=== PATIENT | male | born 1970 | race Two or more races ===

== ENCOUNTER 2017-10-30 08:21 | Inpatient (IN) | payer MEDICARE, MEDICAID ==
[2017-10-30] VITALS (23 sets, daily range): BP systolic 90–128; BP diastolic 41–81
[~2017-10-30] VITALS: Ht 175.3 cm; Wt 117.0 kg
[~2017-10-30 08:21] MED LIST: CITA-77; DIVA500T59; LACO200T PO; LAMICTAL; LORA-205; MELO1TAB56; OXCA300T26; PRIM250T29 PO; TOPAMAX; TOPI100T29 PO; [UNRECOGNIZED DRUG - CODE]; [UNRECOGNIZED DRUG - CODE]
[2017-10-30 09:41] LABS: Basophils # (auto) 0 uL; Basophils % (auto) 0.1 % (0.0-2.0); Eosinophils # (auto) 0 uL; Hematocrit 43.9 % (41.0-53.0); Hemoglobin 14.2 g/dL (13.5-17.5); Lymphocytes % (auto) 4.1 % (10.0-50.0); Mean Corpuscular Hemoglobin 29.2 pg (28.0-32.0); Mean Corpuscular Hgb Conc. 32.4 g/dL (32.0-36.0); Monocytes # (auto) 0.9 uL; Monocytes % (auto) 3.8 % (0.0-12.0); Neutrophils # (auto) 21.9 uL; Nucleated Red Blood Cells % 0.1 %; Platelet Count (auto) 311 10^3/uL (140-450); Red Blood Cells 4.87 10^6/uL (4.5-5.90); Red Cell Distribution Width 14.4 % (11.8-14.3); White Blood Cell 23.8 10^3/uL (4.4-10.8)
[2017-10-30 09:54] LABS: Albumin 3.3 g/dL (3.4-5.0); BUN/Creatinine Ratio 17.4; Potassium 3.4 mmol/L (3.5-5.1)
[2017-10-30 09:55] LABS: Lactic Acid w/Reflex 2.1 mmol/L (0.4-2.0)
[2017-10-30 09:56] LABS: Urine Bacteria FEW /hpf (None Seen); Urine Blood Negative /uL (Negative); Urine Hyaline Cast FEW /lpf (0 - 2); Urine Mucus FEW (None Seen); Urine Specific Gravity 1.024 (1.001-1.035); Urine WBC 9 /hpf (0 - 3)
[2017-10-30 09:57] LABS: Bilirubin, Total 0.6 mg/dL (0.2-1.0); Total Protein 8.7 g/dL (6.4-8.2)
[2017-10-30] MEDS ORDERED: SODIUM CHLORIDE 0.9% 1,000 ML IVB ONE (10:25)
[2017-10-30] MEDS ORDERED: cefTRIAXone 1GM/10ml IVPUSH 10 ML IV ONE (10:30)
[2017-10-30 11:18] LABS: Magnesium 2.4 mg/dL (1.6-2.6)
[2017-10-30] MEDS ORDERED: ONDANSETRON HCL 4 MG/2 ML VIAL IV ONE ×2 (12:15→14:45)
[2017-10-30] MEDS ORDERED: metroNIDAZOLE 500MG/100ML 100 ML IV ONE (13:15)
[2017-10-30] MEDS ORDERED: SODIUM CHLORIDE 0.9% 1,000 ML IV SCH (13:48)
[2017-10-30] MEDS ORDERED: VANCOMYCIN PER PHARMACY 0 MG IV SCH (14:00)
[2017-10-30] MEDS ORDERED: ONDANSETRON HCL 4 MG/2 ML VIAL IV PRN (14:00)
[2017-10-30] MEDS ORDERED: LEVETIRACETAM INJ 500 MG in D5W 5% 100 ML IV ONE (14:00)
[2017-10-30] MEDS ORDERED: POTASSIUM CHL 20MEQ/100ML 100 ML IV ONE (14:00)
[2017-10-30] MEDS ORDERED: DEXTROSE (50%) 50ML SYRG IV PRN (14:00)
[2017-10-30] MEDS ORDERED: LABETALOL HCL 5 MG/ML 4ML SYRINGE IV PRN (14:45)
[2017-10-30] MEDS ORDERED: NALOXONE HCL 0.4 MG/ML VIAL IV PRN (14:45)
[2017-10-30] MEDS ORDERED: hydrALAZINE HCL 20 MG/ML VL IV PRN (14:45)
[2017-10-30] MEDS ORDERED: METOCLOPRAMIDE HCL 5MG/ml INJ 2ml VIAL IV ONE (14:45)
[2017-10-30] MEDS ORDERED: ePHEDrine SULFATE 50 MG/ML AMP IV PRN (14:45)
[2017-10-30] MEDS ORDERED: HYDROmorphone HCL 2 MG/ML VL IV PRN (14:45)
[2017-10-30] MEDS ORDERED: VANCOMYCIN 1,500 MG in D5W 5% 250 ML IV ONE (15:00)
[2017-10-30] MEDS ORDERED: fentaNYL CITRATE 100 MCG/2 ML VL IV ONE (15:00)
[2017-10-30] MEDS ORDERED: ROCURONIUM 10MG/ML 10ML VIAL IV ONE (15:01)
[2017-10-30] MEDS ORDERED: fentaNYL CITRATE 5 ML ONE (15:01)
[2017-10-30] MEDS ORDERED: METOCLOPRAMIDE HCL 5MG/ml INJ 2ml VIAL ONE (15:02)
[2017-10-30] MEDS ORDERED: DEXAMETHASONE SOD PHOS 10MG/1ML VIAL INJ ONE (15:02)
[2017-10-30] MEDS ORDERED: SODIUM CHLORIDE LOCK 20 ML ONE (15:02)
[2017-10-30] MEDS ORDERED: GLYCOPYRROLATE 0.2 MG/ML 1ML VIAL ONE (15:02)
[2017-10-30] MEDS ORDERED: PROPOFOL 10 MG/ML 20 ML IV ONE (15:02)
[2017-10-30] MEDS ORDERED: LIDOCAINE HCL 2 %PF INJ 10ML AMP IJ ONE (15:02)
[2017-10-30] MEDS ORDERED: diphenhdrAMINE HCL 50 MG/1 ML VL ONE (15:02)
[2017-10-30 15:12] LABS: INR 1.1 (0.9-1.15); Prothrombin Time 11.7 sec (9.27-12.13)
[2017-10-30] MEDS ORDERED: BUPIVACAINE 0.25% INJ 50ML VIAL ONE (15:28)
[2017-10-30] MEDS ORDERED: ePHEDrine SULFATE 50 MG/ML AMP ONE (16:45)
[2017-10-30] MEDS ORDERED: ceFAZolin 1GM VL ONE (17:48)
[2017-10-30] MEDS: InsuLIN REG 1unit/0.01ml Soln (100units/ml) SC SCH (18:00)
[2017-10-30] MEDS: ACCU-CHEK COMFORT CURVE STRIP VI SCH (18:00)
[2017-10-30] MEDS ORDERED: fentaNYL CITRATE 100 MCG/2 ML VL ONE (18:05)
[2017-10-30] MEDS ORDERED: PROPOFOL 100 ML IV ONE (18:40)
[2017-10-30] MEDS: D5W/SOD CHL 0.45% 1,000 ML IV SCH (19:00)
[2017-10-30] MEDS ORDERED: fentaNYL Drip 2500mCg/250mlNS 250 ML IV SCH (19:23)
[2017-10-30] MEDS: metroNIDAZOLE 500MG/100ML 100 ML IV SCH (20:00)
[2017-10-30] MEDS: PROPOFOL 100 ML IV SCH ×2 (20:42→23:02)
[2017-10-30] MEDS ORDERED: FLUO40CA PO (21:25)
[2017-10-30] MEDS ORDERED: QUET100T46 PO (21:25)
[2017-10-30] MEDS ORDERED: LEVETIRACETAM 500 MG/5ML INJ IV ONE (23:15)
[2017-10-31] VITALS (102 sets, daily range): BP systolic 78–141; BP diastolic 43–95
[2017-10-31] MEDS: LEVETIRACETAM INJ 500 MG in D5W 5% 100 ML IV SCH ×2 (01:47→14:00)
[2017-10-31] MEDS: metroNIDAZOLE 500MG/100ML 100 ML IV SCH ×4 (02:00→20:08)
[2017-10-31] MEDS: PROPOFOL 100 ML IV SCH ×2 (02:59→04:35)
[2017-10-31] MEDS: D5W/SOD CHL 0.45% 1,000 ML IV SCH ×3 (03:00→18:06)
[2017-10-31 04:21] LABS: Basophils # (auto) 0 uL; Basophils % (auto) 0.1 % (0.0-2.0); Eosinophils # (auto) 0 uL; Hematocrit 38.9 % (41.0-53.0); Hemoglobin 12.7 g/dL (13.5-17.5); Lymphocytes # (auto) 0.4 uL; Mean Corpuscular Hemoglobin 29.8 pg (28.0-32.0); Mean Corpuscular Hgb Conc. 32.7 g/dL (32.0-36.0); Mean Corpuscular Volume 91.1 fL (80.0-100.0); Monocytes # (auto) 0.8 uL; Monocytes % (auto) 5.9 % (0.0-12.0); Neutrophils # (auto) 12.4 uL; Platelet Count (auto) 285 10^3/uL (140-450); Red Blood Cells 4.28 10^6/uL (4.5-5.90); Red Cell Distribution Width 14.1 % (11.8-14.3); White Blood Cell 13.6 10^3/uL (4.4-10.8)
[2017-10-31 04:43] LABS: Albumin 2.4 g/dL (3.4-5.0); BUN/Creatinine Ratio 22.4; Bilirubin, Total 0.5 mg/dL (0.2-1.0); Potassium 3.2 mmol/L (3.5-5.1)
[2017-10-31] MEDS: HYDROmorphone HCL 2 MG/ML VL IV PRN (05:30)
[2017-10-31] MEDS: POTASSIUM CHL 20MEQ/100ML 100 ML IV SCH ×2 (05:30→07:30)
[2017-10-31] MEDS: ACCU-CHEK COMFORT CURVE STRIP VI SCH ×5 (06:04→23:42)
[2017-10-31] MEDS: InsuLIN REG 1unit/0.01ml Soln (100units/ml) SC SCH ×5 (06:04→23:42)
[2017-10-31] MEDS ORDERED: PROPOFOL 100 ML IV ONE (08:49)
[2017-10-31] MEDS: cefTRIAXone 1GM/10ml IVPUSH 10 ML IV SCH (08:58)
[2017-10-31] MEDS: VANCOMYCIN 1,500 MG in D5W 5% 250 ML IV SCH (09:28)
[2017-10-31] MEDS: ENOXAPARIN SOD 40 MG/0.4 ML SYRINGE SC SCH (10:00)
[2017-10-31] MEDS ORDERED: EPINEPHrine HCL 0.5 ML NEB ONE (11:56)
[2017-10-31] MEDS ORDERED: DEXAMETHASONE SOD PHOS 10MG/1ML VIAL INJ ONE (12:04)
[2017-10-31] MEDS ORDERED: FUROSEMIDE 40 MG/4 ML VIAL ONE (12:04)
[2017-10-31] MEDS ORDERED: DEXAMETHASONE SOD PHOS 10MG/1ML VIAL INJ IV ONE (12:15)
[2017-10-31] MEDS ORDERED: FUROSEMIDE 40 MG/4 ML VIAL IV ONE (12:15)
[2017-10-31] MEDS ORDERED: EPINEPHrine HCL 0.5 ML NEB NEB ONE (12:15)
[2017-10-31] MEDS: MORPHINE SULF INJ 2 MG/ML SYRINGE 1ML IV PRN (12:29)
[2017-10-31] MEDS: LORazepam 2MG/ML-1ML VIAL IV PRN (12:58)
[2017-10-31] MEDS: fentaNYL Drip 2500mCg/250mlNS 250 ML IV SCH (13:13)
[2017-10-31] MEDS ORDERED: MIDAZOLAM DRIP 50 mg/50mL 50 ML IV SCH (13:13)
[2017-10-31] MEDS ORDERED: MIDAZOLAM HCL 5 MG/ML-1ML VIAL ONE (13:16)
[2017-10-31] MEDS: MIDAZOLAM DRIP 50 mg/50mL 50 ML IV SCH ×2 (14:15→22:17)
[2017-10-31] MEDS: DEXMEDETOMIDINE HCL 400 MCG in D5W 5% 96 ML IV SCH (15:57)
[2017-10-31] MEDS: LACOSAMIDE 50 MG TAB PO SCH ×2 (16:30→21:38)
[2017-10-31] MEDS ORDERED: metroNIDAZOLE 500MG/100ML 100 ML IV ONE (16:34)
[2017-10-31] MEDS: methylPREDNISolone SOD SUCC 125 MG/2 ML VL IV SCH (21:21)
[2017-10-31] MEDS: TOPIRAMATE 100 MG TAB PO SCH (21:22)
[2017-10-31] MEDS: FLUoxetine HCL 20 MG CAP PO SCH (21:22)
[2017-10-31] MEDS: QUEtiapine FUMARATE 25 MG TAB PO SCH (21:22)
[2017-10-31] MEDS: PRIMIDONE 50 MG TAB PO SCH (21:37)
[2017-11-01] VITALS (104 sets, daily range): BP systolic 95–121; BP diastolic 46–70
[2017-11-01] MEDS: MIDAZOLAM DRIP 50 mg/50mL 50 ML IV SCH ×3 (01:15→17:11)
[2017-11-01] MEDS: metroNIDAZOLE 500MG/100ML 100 ML IV SCH ×4 (01:37→20:16)
[2017-11-01] MEDS: LEVETIRACETAM INJ 500 MG in D5W 5% 100 ML IV SCH ×2 (01:37→14:00)
[2017-11-01] MEDS: DEXMEDETOMIDINE HCL 400 MCG in D5W 5% 96 ML IV SCH (03:05)
[2017-11-01] MEDS: VANCOMYCIN 1,500 MG in D5W 5% 250 ML IV SCH ×2 (03:22→21:26)
[2017-11-01 03:53] LABS: Basophils # (auto) 0 uL; Eosinophils # (auto) 0 uL; Hematocrit 35.4 % (41.0-53.0); Hemoglobin 11.5 g/dL (13.5-17.5); Lymphocytes # (auto) 0.3 uL; Lymphocytes % (auto) 2.4 % (10.0-50.0); Mean Corpuscular Hemoglobin 29.2 pg (28.0-32.0); Mean Corpuscular Hgb Conc. 32.5 g/dL (32.0-36.0); Mean Corpuscular Volume 89.8 fL (80.0-100.0); Monocytes # (auto) 0.4 uL; Monocytes % (auto) 3.2 % (0.0-12.0); Neutrophils # (auto) 11.9 uL; Neutrophils % (auto) 94.4 % (37.0-80.0); Nucleated Red Blood Cells % 0.3 %; Platelet Count (auto) 282 10^3/uL (140-450); Red Blood Cells 3.94 10^6/uL (4.5-5.90); Red Cell Distribution Width 14.3 % (11.8-14.3); White Blood Cell 12.6 10^3/uL (4.4-10.8)
[2017-11-01 04:22] LABS: Albumin 2.3 g/dL (3.4-5.0); Bilirubin, Total 0.5 mg/dL (0.2-1.0); Calcium 7.7 mg/dL (8.5-10.1); Potassium 3.2 mmol/L (3.5-5.1); Total Protein 7.1 g/dL (6.4-8.2)
[2017-11-01] MEDS ORDERED: POTASSIUM CHL 20 Meq TABLET PO ONE (05:30)
[2017-11-01] MEDS: methylPREDNISolone SOD SUCC 125 MG/2 ML VL IV SCH ×3 (05:53→21:53)
[2017-11-01] MEDS: PRIMIDONE 50 MG TAB PO SCH ×3 (05:54→21:54)
[2017-11-01] MEDS: InsuLIN REG 1unit/0.01ml Soln (100units/ml) SC SCH ×3 (05:54→18:00)
[2017-11-01] MEDS: ACCU-CHEK COMFORT CURVE STRIP VI SCH ×3 (05:54→18:00)
[2017-11-01] MEDS ORDERED: POTASSIUM EFFERVESENT TAB 25 MEQ PO ONE (06:00)
[2017-11-01] MEDS: D5W/SOD CHL 0.45% 1,000 ML IV SCH ×3 (06:14→17:11)
[2017-11-01] MEDS: cefTRIAXone 1GM/10ml IVPUSH 10 ML IV SCH (09:00)
[2017-11-01] MEDS: LACOSAMIDE 50 MG TAB PO SCH ×2 (09:32→21:53)
[2017-11-01] MEDS: FLUoxetine HCL 20 MG CAP PO SCH ×2 (09:32→21:53)
[2017-11-01] MEDS: PANTOPRAZOLE 40 MG/10 ML VIAL IV SCH (09:32)
[2017-11-01] MEDS: ENOXAPARIN SOD 40 MG/0.4 ML SYRINGE SC SCH (09:32)
[2017-11-01] MEDS: TOPIRAMATE 100 MG TAB PO SCH ×2 (09:55→21:54)
[2017-11-01] MEDS: fentaNYL Drip 2500mCg/250mlNS 250 ML IV SCH ×2 (13:13→21:26)
[2017-11-01] MEDS ORDERED: LIDOCAINE 1% (LOCAL ANESTH.) PF 5ml SDV ID ONE (16:15)
[2017-11-01] MEDS ORDERED: SODIUM CHLORIDE 0.9% 500 ML IV ONE (19:00)
[2017-11-01] MEDS: PROPOFOL 100 ML IV SCH (19:23)
[2017-11-01] MEDS: POTASSIUM CHL 20MEQ/100ML 100 ML IV ONE ×2 (20:16→21:53)
[2017-11-01] MEDS: QUEtiapine FUMARATE 25 MG TAB PO SCH (21:53)
[2017-11-01] MEDS: SODIUM CHLOR 0.9% PF (SALINE LOCK) 10ML VIAL/SYR IV SCH (21:54)
[2017-11-02] VITALS (60 sets, daily range): BP systolic 94–139; BP diastolic 50–105
[2017-11-02] MEDS: ACCU-CHEK COMFORT CURVE STRIP VI SCH ×4 (00:15→17:38)
[2017-11-02] MEDS: InsuLIN REG 1unit/0.01ml Soln (100units/ml) SC SCH ×4 (00:15→17:37)
[2017-11-02] MEDS: LEVETIRACETAM INJ 500 MG in D5W 5% 100 ML IV SCH ×2 (01:46→14:00)
[2017-11-02] MEDS: metroNIDAZOLE 500MG/100ML 100 ML IV SCH ×4 (02:09→20:36)
[2017-11-02] MEDS: MIDAZOLAM DRIP 50 mg/50mL 50 ML IV SCH (02:09)
[2017-11-02] MEDS: DEXMEDETOMIDINE HCL 400 MCG in D5W 5% 96 ML IV SCH (03:30)
[2017-11-02 03:46] LABS: Basophils # (auto) 0 uL; Basophils % (auto) 0.1 % (0.0-2.0); Eosinophils # (auto) 0 uL; Hematocrit 33.8 % (41.0-53.0); Hemoglobin 10.8 g/dL (13.5-17.5); Lymphocytes # (auto) 0.5 uL; Mean Corpuscular Hemoglobin 29.1 pg (28.0-32.0); Mean Corpuscular Hgb Conc. 31.8 g/dL (32.0-36.0); Mean Corpuscular Volume 91.3 fL (80.0-100.0); Monocytes # (auto) 0.8 uL; Monocytes % (auto) 5.9 % (0.0-12.0); Neutrophils # (auto) 12.2 uL; Nucleated Red Blood Cells % 0.2 %; Platelet Count (auto) 262 10^3/uL (140-450); Red Blood Cells 3.71 10^6/uL (4.5-5.90); Red Cell Distribution Width 14.1 % (11.8-14.3); White Blood Cell 13.5 10^3/uL (4.4-10.8)
[2017-11-02 04:08] LABS: Potassium 3.6 mmol/L (3.5-5.1)
[2017-11-02 04:16] LABS: Albumin 2.1 g/dL (3.4-5.0); BUN/Creatinine Ratio 32.4; Bilirubin, Total 0.4 mg/dL (0.2-1.0); Calcium 7.7 mg/dL (8.5-10.1); Total Protein 6.9 g/dL (6.4-8.2)
[2017-11-02] MEDS: methylPREDNISolone SOD SUCC 125 MG/2 ML VL IV SCH ×3 (05:49→23:04)
[2017-11-02] MEDS: PRIMIDONE 50 MG TAB PO SCH ×3 (05:49→23:05)
[2017-11-02] MEDS: D5W/SOD CHL 0.45% 1,000 ML IV SCH ×3 (05:50→20:36)
[2017-11-02] MEDS: cefTRIAXone 1GM/10ml IVPUSH 10 ML IV SCH (09:00)
[2017-11-02] MEDS ORDERED: VANCOMYCIN 1,500 MG in D5W 5% 250 ML IV SCH (09:00)
[2017-11-02] MEDS: LACOSAMIDE 50 MG TAB PO SCH ×2 (10:00→23:06)
[2017-11-02] MEDS: FLUoxetine HCL 20 MG CAP PO SCH ×2 (10:24→23:05)
[2017-11-02] MEDS: SODIUM CHLOR 0.9% PF (SALINE LOCK) 10ML VIAL/SYR IV SCH ×2 (10:24→23:04)
[2017-11-02] MEDS: PANTOPRAZOLE 40 MG/10 ML VIAL IV SCH (10:24)
[2017-11-02] MEDS: TOPIRAMATE 100 MG TAB PO SCH ×2 (10:24→23:06)
[2017-11-02] MEDS: ENOXAPARIN SOD 40 MG/0.4 ML SYRINGE SC SCH (10:25)
[2017-11-02] MEDS: QUEtiapine FUMARATE 25 MG TAB PO SCH (23:05)
[2017-11-03] MEDS: ACCU-CHEK COMFORT CURVE STRIP VI SCH ×4 (01:50→18:33)
[2017-11-03] MEDS: metroNIDAZOLE 500MG/100ML 100 ML IV SCH ×4 (02:29→20:23)
[2017-11-03] MEDS: LEVETIRACETAM INJ 500 MG in D5W 5% 100 ML IV SCH ×2 (02:29→14:02)
[2017-11-03] MEDS: D5W/SOD CHL 0.45% 1,000 ML IV SCH ×3 (04:38→19:25)
[2017-11-03] MEDS: MORPHINE SULF INJ 2 MG/ML SYRINGE 1ML IV PRN ×2 (04:39→20:22)
[2017-11-03 05:00] VITALS: BP 128/76
[2017-11-03] MEDS: InsuLIN REG 1unit/0.01ml Soln (100units/ml) SC SCH ×4 (06:00→18:00)
[2017-11-03] MEDS: PRIMIDONE 50 MG TAB PO SCH ×4 (06:43→22:00)
[2017-11-03] MEDS: methylPREDNISolone SOD SUCC 125 MG/2 ML VL IV SCH ×3 (06:43→21:57)
[2017-11-03 08:00] VITALS: BP 135/68
[2017-11-03 08:18] LABS: Basophils # (auto) 0 uL; Basophils % (auto) 0.1 % (0.0-2.0); Eosinophils # (auto) 0 uL; Eosinophils % (auto) 0.1 % (0.0-7.0); Hematocrit 37.3 % (41.0-53.0); Lymphocytes # (auto) 0.9 uL; Lymphocytes % (auto) 6.2 % (10.0-50.0); Mean Corpuscular Hemoglobin 29.2 pg (28.0-32.0); Mean Corpuscular Hgb Conc. 32.3 g/dL (32.0-36.0); Mean Corpuscular Volume 90.4 fL (80.0-100.0); Monocytes # (auto) 1.4 uL; Monocytes % (auto) 9.1 % (0.0-12.0); Neutrophils # (auto) 12.7 uL; Neutrophils % (auto) 84.5 % (37.0-80.0); Nucleated Red Blood Cells % 0.1 %; Platelet Count (auto) 331 10^3/uL (140-450); Red Blood Cells 4.13 10^6/uL (4.5-5.90); Red Cell Distribution Width 13.8 % (11.8-14.3); White Blood Cell 15.1 10^3/uL (4.4-10.8)
[2017-11-03 08:40] LABS: Albumin 2.3 g/dL (3.4-5.0); BUN/Creatinine Ratio 29.9; Bilirubin, Total 0.4 mg/dL (0.2-1.0); Calcium 8.2 mg/dL (8.5-10.1); Potassium 3.5 mmol/L (3.5-5.1); Total Protein 7.1 g/dL (6.4-8.2)
[2017-11-03] MEDS: PANTOPRAZOLE 40 MG/10 ML VIAL IV SCH (08:49)
[2017-11-03] MEDS: cefTRIAXone 1GM/10ml IVPUSH 10 ML IV SCH (08:49)
[2017-11-03] MEDS: ENOXAPARIN SOD 40 MG/0.4 ML SYRINGE SC SCH (08:58)
[2017-11-03] MEDS: SODIUM CHLOR 0.9% PF (SALINE LOCK) 10ML VIAL/SYR IV SCH ×2 (08:59→21:57)
[2017-11-03 09:00] VITALS: BP 135/68
[2017-11-03] MEDS: LACOSAMIDE 50 MG TAB PO SCH ×3 (10:00→22:00)
[2017-11-03] MEDS: TOPIRAMATE 100 MG TAB PO SCH ×3 (10:00→22:00)
[2017-11-03] MEDS: FLUoxetine HCL 20 MG CAP PO SCH ×3 (10:00→22:00)
[2017-11-03 22:00] VITALS: BP_SYST 133; BP_SYST 135; BP_DIAS 74; BP_DIAS 79
[2017-11-03] MEDS: QUEtiapine FUMARATE 25 MG TAB PO SCH (22:00)
[2017-11-04] MEDS: ACCU-CHEK COMFORT CURVE STRIP VI SCH ×4 (00:02→18:00)
[2017-11-04] MEDS: metroNIDAZOLE 500MG/100ML 100 ML IV SCH ×4 (01:50→21:07)
[2017-11-04] MEDS: MORPHINE SULF INJ 2 MG/ML SYRINGE 1ML IV PRN ×2 (01:51→23:00)
[2017-11-04] MEDS: LEVETIRACETAM INJ 500 MG in D5W 5% 100 ML IV SCH ×2 (02:00→14:00)
[2017-11-04] MEDS ORDERED: LEVETIRACETAM 500 MG/5ML INJ IV ONE (02:46)
[2017-11-04 04:40] VITALS: BP 137/79
[2017-11-04 05:59] LABS: Hematocrit 40.3 % (41.0-53.0); Hemoglobin 13.1 g/dL (13.5-17.5); Mean Corpuscular Hemoglobin 29.5 pg (28.0-32.0); Mean Corpuscular Hgb Conc. 32.4 g/dL (32.0-36.0); Mean Corpuscular Volume 91.1 fL (80.0-100.0); Platelet Count (auto) 344 10^3/uL (140-450); Red Blood Cells 4.42 10^6/uL (4.5-5.90); Red Cell Distribution Width 14.3 % (11.8-14.3); White Blood Cell 14.8 10^3/uL (4.4-10.8)
[2017-11-04] MEDS: InsuLIN REG 1unit/0.01ml Soln (100units/ml) SC SCH ×4 (06:00→18:00)
[2017-11-04] MEDS: PRIMIDONE 50 MG TAB PO SCH ×3 (06:00→22:00)
[2017-11-04 06:12] LABS: Basophils % (manual) 0 (0.0-2.0); Blast Cells 0; Metamyelocytes % 0; Myelocytes % 0; Promyelocytes % 0; Reactive Lymphocytes 0
[2017-11-04] MEDS: methylPREDNISolone SOD SUCC 125 MG/2 ML VL IV SCH ×3 (06:20→22:46)
[2017-11-04] MEDS: D5W/SOD CHL 0.45% 1,000 ML IV SCH ×3 (06:20→19:00)
[2017-11-04 06:25] LABS: Albumin 2.2 g/dL (3.4-5.0); BUN/Creatinine Ratio 24.1; Bilirubin, Total 0.4 mg/dL (0.2-1.0); Calcium 8.2 mg/dL (8.5-10.1); Potassium 3.1 mmol/L (3.5-5.1); Total Protein 6.5 g/dL (6.4-8.2)
[2017-11-04 06:38] LABS: Band Neutrophils % (manual) 3; Eosinophils % (manual) 1 (0-7); Lymphocytes % (manual) 12 (10.0-50.0); Monocytes % (manual) 13 (0-12)
[2017-11-04 08:44] VITALS: BP 129/76
[2017-11-04] MEDS: cefTRIAXone 1GM/10ml IVPUSH 10 ML IV SCH (09:31)
[2017-11-04] MEDS: PANTOPRAZOLE 40 MG/10 ML VIAL IV SCH (09:31)
[2017-11-04] MEDS: ENOXAPARIN SOD 40 MG/0.4 ML SYRINGE SC SCH (09:32)
[2017-11-04] MEDS: SODIUM CHLOR 0.9% PF (SALINE LOCK) 10ML VIAL/SYR IV SCH ×2 (09:46→22:46)
[2017-11-04] MEDS: TOPIRAMATE 100 MG TAB PO SCH ×2 (10:00→22:00)
[2017-11-04] MEDS: LACOSAMIDE 50 MG TAB PO SCH ×2 (10:00→22:00)
[2017-11-04] MEDS: FLUoxetine HCL 20 MG CAP PO SCH ×2 (10:00→22:00)
[2017-11-04 13:00] VITALS: BP 135/89
[2017-11-04 15:17] LABS: Magnesium 2.3 mg/dL (1.6-2.6); Phosphorus 2.5 mg/dL (2.5-4.90)
[2017-11-04] MEDS ORDERED: TPN PER PHARMACY 0 ML IV SCH (15:30)
[2017-11-04] MEDS ORDERED: POTASSIUM CHL 20MEQ/100ML 100 ML IV ONE (15:55)
[2017-11-04] MEDS: POTASSIUM CHL 20MEQ/100ML 100 ML IV SCH (16:00)
[2017-11-04] MEDS ORDERED: POTASSIUM PHOSPHATE 44 MEQ in D5W 5% 250 ML IV ONE (16:15)
[2017-11-04] MEDS ORDERED: DEXTROSE (50%) 50ML SYRG IV SCH (16:30)
[2017-11-04 17:00] VITALS: BP 138/97
[2017-11-04] MEDS ORDERED: IOHEXOL 350 MG/ML 100ML IJ ONE (17:53)
[2017-11-04] MEDS ORDERED: FUROSEMIDE 40 MG/4 ML VIAL IV ONE (18:45)
[2017-11-04] MEDS: AMINO ACID INFUSION IN D10W 1,000 ML IV NR (20:00)
[2017-11-04] MEDS ORDERED: D5W/SOD CHL 0.45% 1,000 ML IV SCH (20:00)
[2017-11-04] MEDS ORDERED: MAGNESIUM SULFATE 1GM/100ML 100 ML IV ONE (21:00)
[2017-11-04 21:15] VITALS: BP 136/90
[2017-11-04 22:00] VITALS: BP 136/90
[2017-11-04] MEDS: QUEtiapine FUMARATE 25 MG TAB PO SCH (22:00)
[2017-11-05] VITALS (10 sets, daily range): BP systolic 111–139; BP diastolic 55–82
[2017-11-05] MEDS: ACCU-CHEK COMFORT CURVE STRIP VI SCH ×4 (00:33→17:25)
[2017-11-05] MEDS: LEVETIRACETAM INJ 500 MG in D5W 5% 100 ML IV SCH (01:39)
[2017-11-05] MEDS: metroNIDAZOLE 500MG/100ML 100 ML IV SCH ×4 (03:09→20:47)
[2017-11-05] MEDS: POTASSIUM CHL 20MEQ/100ML 100 ML IV SCH (03:10)
[2017-11-05] MEDS: ALBUTEROL SULF 2.5 MG/0.5ML(0.5%) NEB SOLN NEB PRN ×2 (03:35→07:04)
[2017-11-05] MEDS: MORPHINE SULF INJ 2 MG/ML SYRINGE 1ML IV PRN ×3 (04:01→21:15)
[2017-11-05] MEDS: PRIMIDONE 50 MG TAB PO SCH ×3 (04:07→22:00)
[2017-11-05] MEDS: LORazepam 2MG/ML-1ML VIAL IV PRN ×2 (05:45→06:49)
[2017-11-05] MEDS: InsuLIN REG 1unit/0.01ml Soln (100units/ml) SC SCH ×4 (06:00→17:33)
[2017-11-05] MEDS: methylPREDNISolone SOD SUCC 125 MG/2 ML VL IV SCH ×3 (06:44→22:48)
[2017-11-05 06:46] LABS: Hematocrit 40.5 % (41.0-53.0); Hemoglobin 13.1 g/dL (13.5-17.5); Mean Corpuscular Hgb Conc. 32.3 g/dL (32.0-36.0); Platelet Count (auto) 404 10^3/uL (140-450); Red Cell Distribution Width 13.8 % (11.8-14.3); White Blood Cell 16.9 10^3/uL (4.4-10.8)
[2017-11-05 07:06] LABS: Band Neutrophils % (manual) 0; Basophils % (manual) 0 (0.0-2.0); Blast Cells 0; Eosinophils % (manual) 0 (0-7); Myelocytes % 0; Promyelocytes % 0; Reactive Lymphocytes 0
[2017-11-05 07:27] LABS: Albumin 2.6 g/dL (3.4-5.0); BUN/Creatinine Ratio 23.6; Bilirubin, Total 0.4 mg/dL (0.2-1.0); Calcium 8.7 mg/dL (8.5-10.1); Magnesium 2.8 mg/dL (1.6-2.6); Phosphorus 4.4 mg/dL (2.5-4.90); Potassium 3.9 mmol/L (3.5-5.1); Pre Albumin 24.2 mg/dL (20.0-40.0); Total Protein 7.2 g/dL (6.4-8.2)
[2017-11-05 08:05] LABS: Lymphocytes % (manual) 10 (10.0-50.0); Metamyelocytes % 1; Monocytes % (manual) 6 (0-12)
[2017-11-05] MEDS: IPRATROPIUM BROM 0.5 MG/2.5ML INH SOL NEB SCH ×4 (09:35→22:39)
[2017-11-05] MEDS: ALBUTEROL SULF 2.5 MG/0.5ML(0.5%) NEB SOLN NEB SCH ×4 (09:35→22:39)
[2017-11-05] MEDS ORDERED: ALBUTEROL SULF 2.5 MG/0.5ML(0.5%) NEB SOLN ONE (09:46)
[2017-11-05] MEDS ORDERED: IPRATROPIUM BROM 0.5 MG/2.5ML INH SOL ONE (09:46)
[2017-11-05] MEDS: PIPERACILLIN-TAZOB 3.375GM 100 ML IV SCH ×3 (10:00→17:28)
[2017-11-05] MEDS: TOPIRAMATE 100 MG TAB PO SCH (10:00)
[2017-11-05] MEDS ORDERED: LEVETIRACETAM INJ 1,000 MG in D5W 5% 100 ML IV SCH (10:00)
[2017-11-05] MEDS ORDERED: FUROSEMIDE 40 MG/4 ML VIAL IV ONE (12:00)
[2017-11-05] MEDS: SODIUM CHLOR 0.9% PF (SALINE LOCK) 10ML VIAL/SYR IV SCH ×2 (12:02→22:42)
[2017-11-05] MEDS: FLUoxetine HCL 20 MG CAP PO SCH ×2 (12:18→22:00)
[2017-11-05] MEDS: LACOSAMIDE 50 MG TAB PO SCH ×2 (12:19→22:00)
[2017-11-05] MEDS: ACETAMINOPHEN 650 MG RECT SUPP PR PRN (12:21)
[2017-11-05] MEDS: ENOXAPARIN SOD 40 MG/0.4 ML SYRINGE SC SCH (12:21)
[2017-11-05] MEDS: PANTOPRAZOLE 40 MG/10 ML VIAL IV SCH (12:21)
[2017-11-05] MEDS ORDERED: TPN PER PHARMACY IV NR ×8 (20:00)
[2017-11-05] MEDS: AMINO ACID INFUSION IN D10W 1,000 ML IV NR (20:47)
[2017-11-05] MEDS: QUEtiapine FUMARATE 25 MG TAB PO SCH (22:00)
[2017-11-05] MEDS: TOPIRAMATE 25 MG TAB PO SCH (22:00)
[2017-11-06] VITALS: BP 112/62
[2017-11-06] MEDS: PIPERACILLIN-TAZOB 3.375GM 100 ML IV SCH ×5 (00:11→23:40)
[2017-11-06] MEDS: ACCU-CHEK COMFORT CURVE STRIP VI SCH ×4 (00:17→17:23)
[2017-11-06] MEDS: InsuLIN REG 1unit/0.01ml Soln (100units/ml) SC SCH ×4 (00:18→18:00)
[2017-11-06] MEDS: metroNIDAZOLE 500MG/100ML 100 ML IV SCH ×4 (02:07→20:12)
[2017-11-06] MEDS: IPRATROPIUM BROM 0.5 MG/2.5ML INH SOL NEB SCH ×6 (02:22→22:55)
[2017-11-06] MEDS: ALBUTEROL SULF 2.5 MG/0.5ML(0.5%) NEB SOLN NEB SCH ×6 (02:22→22:55)
[2017-11-06 04:00] VITALS: BP 118/66
[2017-11-06 05:39] LABS: Basophils # (auto) 0 uL; Basophils % (auto) 0.1 % (0.0-2.0); Eosinophils # (auto) 0 uL; Eosinophils % (auto) 0.3 % (0.0-7.0); Hemoglobin 12.3 g/dL (13.5-17.5); Lymphocytes # (auto) 1.2 uL; Lymphocytes % (auto) 8.6 % (10.0-50.0); Mean Corpuscular Hemoglobin 29.3 pg (28.0-32.0); Mean Corpuscular Hgb Conc. 32.4 g/dL (32.0-36.0); Mean Corpuscular Volume 90.4 fL (80.0-100.0); Monocytes # (auto) 0.7 uL; Monocytes % (auto) 5.2 % (0.0-12.0); Neutrophils # (auto) 11.5 uL; Neutrophils % (auto) 85.8 % (37.0-80.0); Nucleated Red Blood Cells % 0.1 %; Platelet Count (auto) 359 10^3/uL (140-450); Red Cell Distribution Width 14.5 % (11.8-14.3); White Blood Cell 13.4 10^3/uL (4.4-10.8)
[2017-11-06] MEDS: methylPREDNISolone SOD SUCC 125 MG/2 ML VL IV SCH (05:56)
[2017-11-06 05:59] LABS: Albumin 2.3 g/dL (3.4-5.0); BUN/Creatinine Ratio 29.5; Bilirubin, Total 0.4 mg/dL (0.2-1.0); Calcium 8.2 mg/dL (8.5-10.1); Magnesium 2.5 mg/dL (1.6-2.6); Phosphorus 2.2 mg/dL (2.5-4.90); Potassium 3.9 mmol/L (3.5-5.1); Total Protein 6.7 g/dL (6.4-8.2)
[2017-11-06] MEDS: TOPIRAMATE 100 MG TAB PO SCH (07:00)
[2017-11-06] MEDS: PRIMIDONE 50 MG TAB PO SCH ×2 (07:00→20:57)
[2017-11-06 07:30] VITALS: BP 134/71
[2017-11-06] MEDS: LACOSAMIDE 50 MG TAB PO SCH (10:00)
[2017-11-06] MEDS: FLUoxetine HCL 20 MG CAP PO SCH ×2 (10:00→20:58)
[2017-11-06] MEDS: PANTOPRAZOLE 40 MG/10 ML VIAL IV SCH (10:14)
[2017-11-06] MEDS: SODIUM CHLOR 0.9% PF (SALINE LOCK) 10ML VIAL/SYR IV SCH ×2 (10:15→20:57)
[2017-11-06] MEDS: ENOXAPARIN SOD 40 MG/0.4 ML SYRINGE SC SCH (10:15)
[2017-11-06] MEDS ORDERED: POTASSIUM PHOSPHATE 22 MEQ in SODIUM CHL 0.9% 100 ML IV ONE (11:00)
[2017-11-06 12:00] VITALS: BP 119/68
[2017-11-06] MEDS: LORazepam 2MG/ML-1ML VIAL IV PRN (13:13)
[2017-11-06] MEDS: ACETAMINOPHEN 650 MG RECT SUPP PR PRN (15:23)
[2017-11-06 16:30] VITALS: BP 131/74
[2017-11-06 20:00] VITALS: BP 118/71
[2017-11-06] MEDS ORDERED: TPN PER PHARMACY IV NR ×8 (20:00)
[2017-11-06] MEDS ORDERED: LACOSAMIDE 200 mg/20ml VIAL IV SCH (20:00)
[2017-11-06] MEDS: TOPIRAMATE 25 MG TAB PO SCH (20:58)
[2017-11-06] MEDS: QUEtiapine FUMARATE 25 MG TAB PO SCH (20:58)
[2017-11-06] MEDS: HYDROCORTONE 1% TOPICAL CREAM 30 GM TUBE TOP SCH ×2 (20:59→21:00)
[2017-11-06] MEDS: SODIUM CHL 0.9% IV SCH (22:21)
[2017-11-06] MEDS: LACOSAMIDE IV SCH (22:21)
[2017-11-07] VITALS (7 sets, daily range): BP systolic 96–131; BP diastolic 50–78
[2017-11-07] MEDS: metroNIDAZOLE 500MG/100ML 100 ML IV SCH ×4 (02:00→20:44)
[2017-11-07] MEDS: IPRATROPIUM BROM 0.5 MG/2.5ML INH SOL NEB SCH ×6 (02:21→22:41)
[2017-11-07] MEDS: ALBUTEROL SULF 2.5 MG/0.5ML(0.5%) NEB SOLN NEB SCH ×6 (02:21→22:41)
[2017-11-07 05:11] LABS: Basophils # (auto) 0 uL; Basophils % (auto) 0.1 % (0.0-2.0); Eosinophils # (auto) 0.3 uL; Eosinophils % (auto) 1.8 % (0.0-7.0); Hematocrit 39.2 % (41.0-53.0); Hemoglobin 12.8 g/dL (13.5-17.5); Lymphocytes # (auto) 2.1 uL; Lymphocytes % (auto) 13.6 % (10.0-50.0); Mean Corpuscular Hemoglobin 29.3 pg (28.0-32.0); Mean Corpuscular Hgb Conc. 32.6 g/dL (32.0-36.0); Mean Corpuscular Volume 89.7 fL (80.0-100.0); Monocytes # (auto) 0.9 uL; Monocytes % (auto) 5.9 % (0.0-12.0); Neutrophils % (auto) 78.6 % (37.0-80.0); Platelet Count (auto) 367 10^3/uL (140-450); Red Blood Cells 4.37 10^6/uL (4.5-5.90); Red Cell Distribution Width 14.3 % (11.8-14.3); White Blood Cell 15.2 10^3/uL (4.4-10.8)
[2017-11-07 05:37] LABS: Albumin 2.5 g/dL (3.4-5.0); BUN/Creatinine Ratio 23.8; Bilirubin, Total 0.7 mg/dL (0.2-1.0); Calcium 8.3 mg/dL (8.5-10.1); Potassium 3.5 mmol/L (3.5-5.1); Total Protein 6.9 g/dL (6.4-8.2)
[2017-11-07 05:42] LABS: Magnesium 2.1 mg/dL (1.6-2.6); Phosphorus 2.2 mg/dL (2.5-4.90)
[2017-11-07] MEDS: InsuLIN REG 1unit/0.01ml Soln (100units/ml) SC SCH ×4 (06:00→18:00)
[2017-11-07] MEDS: PIPERACILLIN-TAZOB 3.375GM 100 ML IV SCH ×3 (06:00→18:15)
[2017-11-07] MEDS: ACCU-CHEK COMFORT CURVE STRIP VI SCH ×4 (06:00→18:16)
[2017-11-07] MEDS: PRIMIDONE 50 MG TAB PO SCH ×2 (06:48→22:00)
[2017-11-07] MEDS: TOPIRAMATE 100 MG TAB PO SCH ×2 (06:49→22:00)
[2017-11-07] MEDS: FLUoxetine HCL 20 MG CAP PO SCH ×2 (09:21→21:57)
[2017-11-07] MEDS: PANTOPRAZOLE 40 MG/10 ML VIAL IV SCH (09:26)
[2017-11-07] MEDS: SODIUM CHLOR 0.9% PF (SALINE LOCK) 10ML VIAL/SYR IV SCH ×2 (09:26→21:29)
[2017-11-07] MEDS: ENOXAPARIN SOD 40 MG/0.4 ML SYRINGE SC SCH (09:27)
[2017-11-07] MEDS: LACOSAMIDE IV SCH ×2 (09:55→21:00)
[2017-11-07] MEDS: SODIUM CHL 0.9% IV SCH ×2 (09:55→21:00)
[2017-11-07] MEDS: ACETAMINOPHEN 650 MG RECT SUPP PR PRN (09:55)
[2017-11-07] MEDS: LORazepam 2MG/ML-1ML VIAL IV PRN ×2 (11:35→21:55)
[2017-11-07] MEDS: MORPHINE SULF INJ 2 MG/ML SYRINGE 1ML IV PRN (12:45)
[2017-11-07] MEDS ORDERED: [UNRECOGNIZED DRUG - OTHER] IV NR ×10 (20:00)
[2017-11-07] MEDS ORDERED: FAT EMULSION IV NR ×10 (20:00)
[2017-11-07] MEDS ORDERED: SODIUM CHLORIDE IV NR ×10 (20:00)
[2017-11-07] MEDS ORDERED: POTASSIUM CHLORIDE IV NR ×10 (20:00)
[2017-11-07] MEDS: QUEtiapine FUMARATE 25 MG TAB PO SCH (21:57)
[2017-11-07] MEDS: HYDROCORTONE 1% TOPICAL CREAM 30 GM TUBE TOP SCH (22:00)
[2017-11-08] MEDS: ACCU-CHEK COMFORT CURVE STRIP VI SCH ×5 (00:05→23:18)
[2017-11-08] MEDS ORDERED: MORPHINE SULFATE 4 MG/ML SYR/VIAL IV ONE (00:15)
[2017-11-08] MEDS: PIPERACILLIN-TAZOB 3.375GM 100 ML IV SCH ×5 (00:49→23:17)
[2017-11-08] MEDS: ALBUTEROL SULF 2.5 MG/0.5ML(0.5%) NEB SOLN NEB SCH ×6 (02:28→22:47)
[2017-11-08] MEDS: IPRATROPIUM BROM 0.5 MG/2.5ML INH SOL NEB SCH ×6 (02:28→22:47)
[2017-11-08] MEDS: metroNIDAZOLE 500MG/100ML 100 ML IV SCH ×4 (02:30→19:58)
[2017-11-08] MEDS: ACETAMINOPHEN 325 MG TAB PO PRN (02:46)
[2017-11-08] MEDS: ACETAMINOPHEN 650 MG RECT SUPP PR PRN (02:49)
[2017-11-08] MEDS: InsuLIN REG 1unit/0.01ml Soln (100units/ml) SC SCH ×5 (05:35→23:17)
[2017-11-08 05:36] VITALS: BP 109/52
[2017-11-08 06:23] LABS: Basophils # (auto) 0 uL; Basophils % (auto) 0.2 % (0.0-2.0); Eosinophils # (auto) 0.3 uL; Eosinophils % (auto) 1.9 % (0.0-7.0); Hematocrit 36.9 % (41.0-53.0); Hemoglobin 12.2 g/dL (13.5-17.5); Lymphocytes # (auto) 1.9 uL; Lymphocytes % (auto) 11.6 % (10.0-50.0); Mean Corpuscular Hemoglobin 29.8 pg (28.0-32.0); Mean Corpuscular Hgb Conc. 32.9 g/dL (32.0-36.0); Mean Corpuscular Volume 90.6 fL (80.0-100.0); Monocytes # (auto) 0.9 uL; Monocytes % (auto) 5.3 % (0.0-12.0); Neutrophils # (auto) 13.2 uL; Platelet Count (auto) 300 10^3/uL (140-450); Red Blood Cells 4.08 10^6/uL (4.5-5.90); Red Cell Distribution Width 14.2 % (11.8-14.3); White Blood Cell 16.3 10^3/uL (4.4-10.8)
[2017-11-08 06:49] LABS: Albumin 2.3 g/dL (3.4-5.0); BUN/Creatinine Ratio 16.7; Bilirubin, Total 0.5 mg/dL (0.2-1.0); Calcium 8.1 mg/dL (8.5-10.1); Magnesium 2.4 mg/dL (1.6-2.6); Potassium 3.7 mmol/L (3.5-5.1); Total Protein 6.3 g/dL (6.4-8.2)
[2017-11-08] MEDS: TOPIRAMATE 100 MG TAB PO SCH (07:00)
[2017-11-08] MEDS: PRIMIDONE 50 MG TAB PO SCH ×3 (07:00→22:00)
[2017-11-08] MEDS ORDERED: LEVETIRACETAM INJ 1,000 MG in D5W 5% 100 ML IV ONE (08:15)
[2017-11-08 08:43] VITALS: BP 110/59
[2017-11-08] MEDS ORDERED: LEVETIRACETAM INJ 500 MG in D5W 5% 100 ML IV SCH (10:00)
[2017-11-08] MEDS: FLUoxetine HCL 20 MG CAP PO SCH ×3 (10:00→22:00)
[2017-11-08] MEDS: PANTOPRAZOLE 40 MG/10 ML VIAL IV SCH (10:08)
[2017-11-08] MEDS: MORPHINE SULF INJ 2 MG/ML SYRINGE 1ML IV PRN (10:08)
[2017-11-08] MEDS: ENOXAPARIN SOD 40 MG/0.4 ML SYRINGE SC SCH (10:08)
[2017-11-08] MEDS: HYDROCORTONE 1% TOPICAL CREAM 30 GM TUBE TOP SCH ×2 (10:09→22:00)
[2017-11-08] MEDS: SODIUM CHLOR 0.9% PF (SALINE LOCK) 10ML VIAL/SYR IV SCH ×2 (10:12→21:37)
[2017-11-08] MEDS ORDERED: VANCOMYCIN PER PHARMACY 0 MG IV SCH (10:45)
[2017-11-08] MEDS ORDERED: VANCOMYCIN 1GM/250ML 250 ML IV ONE (10:45)
[2017-11-08] MEDS: LACOSAMIDE IV SCH ×2 (11:28→21:49)
[2017-11-08] MEDS: SODIUM CHL 0.9% IV SCH ×2 (11:28→21:49)
[2017-11-08 11:35] VITALS: BP 111/51
[2017-11-08] MEDS ORDERED: diphenhdrAMINE HCL 50 MG/1 ML VL IV ONE (12:00)
[2017-11-08] MEDS: VANCOMYCIN 1,250 MG in D5W 5% 250 ML IV SCH ×2 (15:00→23:17)
[2017-11-08] MEDS ORDERED: TPN PER PHARMACY IV NR ×10 (20:00)
[2017-11-08 20:30] VITALS: BP 118/79
[2017-11-08] MEDS: QUEtiapine FUMARATE 25 MG TAB PO SCH ×2 (21:37→22:00)
[2017-11-08 22:00] VITALS: BP 118/74
[2017-11-09] VITALS (9 sets, daily range): BP systolic 109–138; BP diastolic 59–94
[2017-11-09] MEDS: LORazepam 2MG/ML-1ML VIAL IV PRN ×2 (01:03→09:30)
[2017-11-09] MEDS: ACETAMINOPHEN 650 MG RECT SUPP PR PRN (01:14)
[2017-11-09] MEDS: ALBUTEROL SULF 2.5 MG/0.5ML(0.5%) NEB SOLN NEB SCH ×6 (02:41→22:02)
[2017-11-09] MEDS: IPRATROPIUM BROM 0.5 MG/2.5ML INH SOL NEB SCH ×6 (02:41→22:02)
[2017-11-09] MEDS: metroNIDAZOLE 500MG/100ML 100 ML IV SCH ×4 (02:52→20:17)
[2017-11-09] MEDS: PIPERACILLIN-TAZOB 3.375GM 100 ML IV SCH ×4 (05:06→23:36)
[2017-11-09] MEDS: ACCU-CHEK COMFORT CURVE STRIP VI SCH ×3 (05:32→17:53)
[2017-11-09] MEDS: InsuLIN REG 1unit/0.01ml Soln (100units/ml) SC SCH ×3 (05:32→17:53)
[2017-11-09] MEDS: PRIMIDONE 50 MG TAB PO SCH ×2 (06:22→20:58)
[2017-11-09 07:27] LABS: Basophils # (auto) 0.1 uL; Basophils % (auto) 0.4 % (0.0-2.0); Eosinophils # (auto) 0.5 uL; Eosinophils % (auto) 2.6 % (0.0-7.0); Hematocrit 38.1 % (41.0-53.0); Hemoglobin 12.1 g/dL (13.5-17.5); Lymphocytes # (auto) 1.3 uL; Lymphocytes % (auto) 7.1 % (10.0-50.0); Mean Corpuscular Hgb Conc. 31.7 g/dL (32.0-36.0); Mean Corpuscular Volume 91.2 fL (80.0-100.0); Monocytes # (auto) 0.9 uL; Monocytes % (auto) 4.8 % (0.0-12.0); Neutrophils # (auto) 15.4 uL; Neutrophils % (auto) 85.1 % (37.0-80.0); Platelet Count (auto) 297 10^3/uL (140-450); Red Blood Cells 4.17 10^6/uL (4.5-5.90); Red Cell Distribution Width 14.5 % (11.8-14.3)
[2017-11-09 07:36] LABS: Albumin 2.4 g/dL (3.4-5.0); BUN/Creatinine Ratio 14.7; Bilirubin, Total 0.5 mg/dL (0.2-1.0); Calcium 8.2 mg/dL (8.5-10.1); Magnesium 2.5 mg/dL (1.6-2.6); Phosphorus 2.7 mg/dL (2.5-4.90); Potassium 4.2 mmol/L (3.5-5.1); Total Protein 6.7 g/dL (6.4-8.2)
[2017-11-09] MEDS: VANCOMYCIN 1,250 MG in D5W 5% 250 ML IV SCH ×3 (07:41→23:36)
[2017-11-09] MEDS: FLUoxetine HCL 20 MG CAP PO SCH ×2 (10:21→20:58)
[2017-11-09] MEDS: SODIUM CHLOR 0.9% PF (SALINE LOCK) 10ML VIAL/SYR IV SCH ×2 (10:21→20:59)
[2017-11-09] MEDS: ENOXAPARIN SOD 40 MG/0.4 ML SYRINGE SC SCH (10:22)
[2017-11-09] MEDS: PANTOPRAZOLE 40 MG/10 ML VIAL IV SCH (10:28)
[2017-11-09] MEDS: HYDROCORTONE 1% TOPICAL CREAM 30 GM TUBE TOP SCH ×2 (10:29→23:36)
[2017-11-09] MEDS: SODIUM CHL 0.9% IV SCH ×2 (10:39→21:33)
[2017-11-09] MEDS: LACOSAMIDE IV SCH ×2 (10:39→21:33)
[2017-11-09] MEDS: HYDROmorphone HCL 2 MG/ML VL IV PRN (13:25)
[2017-11-09] MEDS: QUEtiapine FUMARATE 25 MG TAB PO SCH (20:58)
[2017-11-09] MEDS: ACETAMINOPHEN 325 MG TAB PO PRN (21:05)
[2017-11-10] MEDS: metroNIDAZOLE 500MG/100ML 100 ML IV SCH ×4 (02:18→20:00)
[2017-11-10] MEDS: IPRATROPIUM BROM 0.5 MG/2.5ML INH SOL NEB SCH ×6 (02:31→22:00)
[2017-11-10] MEDS: ALBUTEROL SULF 2.5 MG/0.5ML(0.5%) NEB SOLN NEB SCH ×6 (02:31→22:00)
[2017-11-10 04:23] VITALS: BP 120/77
[2017-11-10] MEDS: PIPERACILLIN-TAZOB 3.375GM 100 ML IV SCH ×3 (05:28→17:21)
[2017-11-10] MEDS: VANCOMYCIN 1,250 MG in D5W 5% 250 ML IV SCH ×3 (06:52→23:05)
[2017-11-10 07:50] LABS: Basophils # (auto) 0 uL; Basophils % (auto) 0.3 % (0.0-2.0); Eosinophils # (auto) 0.4 uL; Eosinophils % (auto) 2.6 % (0.0-7.0); Hematocrit 36.8 % (41.0-53.0); Lymphocytes # (auto) 1.2 uL; Lymphocytes % (auto) 8.6 % (10.0-50.0); Mean Corpuscular Hemoglobin 29.7 pg (28.0-32.0); Mean Corpuscular Hgb Conc. 32.6 g/dL (32.0-36.0); Mean Corpuscular Volume 91.3 fL (80.0-100.0); Monocytes # (auto) 0.8 uL; Neutrophils # (auto) 11.6 uL; Neutrophils % (auto) 82.5 % (37.0-80.0); Platelet Count (auto) 284 10^3/uL (140-450); Red Blood Cells 4.03 10^6/uL (4.5-5.90); Red Cell Distribution Width 14.5 % (11.8-14.3)
[2017-11-10 08:01] LABS: Albumin 2.4 g/dL (3.4-5.0); BUN/Creatinine Ratio 10.4; Bilirubin, Total 0.9 mg/dL (0.2-1.0); Calcium 8.1 mg/dL (8.5-10.1)
[2017-11-10] MEDS: PRIMIDONE 50 MG TAB PO SCH ×2 (08:03→21:35)
[2017-11-10] MEDS: HYDROmorphone HCL 2 MG/ML VL IV PRN ×2 (08:15→17:22)
[2017-11-10 09:00] VITALS: BP 103/67
[2017-11-10] MEDS: PANTOPRAZOLE 40 MG/10 ML VIAL IV SCH (09:14)
[2017-11-10] MEDS: ENOXAPARIN SOD 40 MG/0.4 ML SYRINGE SC SCH (09:14)
[2017-11-10] MEDS: FLUoxetine HCL 20 MG CAP PO SCH ×2 (09:15→21:36)
[2017-11-10] MEDS: SODIUM CHLOR 0.9% PF (SALINE LOCK) 10ML VIAL/SYR IV SCH ×2 (09:15→21:35)
[2017-11-10] MEDS: HYDROCORTONE 1% TOPICAL CREAM 30 GM TUBE TOP SCH ×2 (09:16→21:36)
[2017-11-10] MEDS: LACOSAMIDE IV SCH ×2 (10:19→21:00)
[2017-11-10] MEDS: SODIUM CHL 0.9% IV SCH ×2 (10:19→21:00)
[2017-11-10 13:00] VITALS: BP 105/57
[2017-11-10] MEDS: LORazepam 2MG/ML-1ML VIAL IV PRN (13:10)
[2017-11-10 17:00] VITALS: BP 114/55
[2017-11-10] MEDS: QUEtiapine FUMARATE 25 MG TAB PO SCH (21:36)
[2017-11-10 22:26] VITALS: BP 111/75
[2017-11-11] MEDS: PIPERACILLIN-TAZOB 3.375GM 100 ML IV SCH ×4 (00:08→19:12)
[2017-11-11] MEDS: metroNIDAZOLE 500MG/100ML 100 ML IV SCH ×4 (02:00→20:51)
[2017-11-11] MEDS: IPRATROPIUM BROM 0.5 MG/2.5ML INH SOL NEB SCH ×6 (02:38→22:17)
[2017-11-11] MEDS: ALBUTEROL SULF 2.5 MG/0.5ML(0.5%) NEB SOLN NEB SCH ×6 (02:38→22:17)
[2017-11-11 05:52] VITALS: BP 121/85
[2017-11-11 07:53] LABS: Basophils # (auto) 0.1 uL; Basophils % (auto) 0.6 % (0.0-2.0); Eosinophils # (auto) 0.2 uL; Eosinophils % (auto) 1.8 % (0.0-7.0); Hematocrit 35.6 % (41.0-53.0); Hemoglobin 11.3 g/dL (13.5-17.5); Lymphocytes # (auto) 1.2 uL; Lymphocytes % (auto) 8.5 % (10.0-50.0); Mean Corpuscular Hemoglobin 28.9 pg (28.0-32.0); Mean Corpuscular Hgb Conc. 31.8 g/dL (32.0-36.0); Mean Corpuscular Volume 90.9 fL (80.0-100.0); Monocytes # (auto) 1.1 uL; Monocytes % (auto) 7.9 % (0.0-12.0); Neutrophils # (auto) 11.2 uL; Neutrophils % (auto) 81.2 % (37.0-80.0); Platelet Count (auto) 307 10^3/uL (140-450); Red Blood Cells 3.92 10^6/uL (4.5-5.90); Red Cell Distribution Width 14.1 % (11.8-14.3); White Blood Cell 13.8 10^3/uL (4.4-10.8)
[2017-11-11 08:00] VITALS: BP 114/54
[2017-11-11 08:17] LABS: Albumin 2.4 g/dL (3.4-5.0); BUN/Creatinine Ratio 8.3; Bilirubin, Total 0.5 mg/dL (0.2-1.0); Potassium 3.7 mmol/L (3.5-5.1); Total Protein 7.1 g/dL (6.4-8.2)
[2017-11-11] MEDS: FLUoxetine HCL 20 MG CAP PO SCH ×2 (09:25→21:41)
[2017-11-11] MEDS: ENOXAPARIN SOD 40 MG/0.4 ML SYRINGE SC SCH (09:26)
[2017-11-11] MEDS: PANTOPRAZOLE 40 MG/10 ML VIAL IV SCH (09:26)
[2017-11-11] MEDS: HYDROCORTONE 1% TOPICAL CREAM 30 GM TUBE TOP SCH ×2 (09:26→21:42)
[2017-11-11] MEDS: PRIMIDONE 50 MG TAB PO SCH ×2 (09:26→21:40)
[2017-11-11] MEDS: VANCOMYCIN 1,250 MG in D5W 5% 250 ML IV SCH ×3 (09:45→23:18)
[2017-11-11 12:00] VITALS: BP 120/48
[2017-11-11] MEDS: SODIUM CHL 0.9% IV SCH ×2 (12:03→21:29)
[2017-11-11] MEDS: LACOSAMIDE IV SCH ×2 (12:03→21:29)
[2017-11-11] MEDS: SODIUM CHLOR 0.9% PF (SALINE LOCK) 10ML VIAL/SYR IV SCH ×2 (12:32→21:30)
[2017-11-11 17:30] VITALS: BP 115/69
[2017-11-11] MEDS: HYDROmorphone HCL 2 MG/ML VL IV PRN (20:56)
[2017-11-11] MEDS: QUEtiapine FUMARATE 25 MG TAB PO SCH (21:41)
[2017-11-11 22:00] VITALS: BP 119/71
[2017-11-11 23:44] VITALS: BP 119/71
[2017-11-12] MEDS: PIPERACILLIN-TAZOB 3.375GM 100 ML IV SCH ×2 (00:35→05:29)
[2017-11-12] MEDS: metroNIDAZOLE 500MG/100ML 100 ML IV SCH ×4 (02:10→20:11)
[2017-11-12] MEDS: IPRATROPIUM BROM 0.5 MG/2.5ML INH SOL NEB SCH ×5 (02:12→22:08)
[2017-11-12] MEDS: ALBUTEROL SULF 2.5 MG/0.5ML(0.5%) NEB SOLN NEB SCH ×5 (02:12→22:08)
[2017-11-12 05:00] VITALS: BP 124/66
[2017-11-12] MEDS: PRIMIDONE 50 MG TAB PO SCH ×2 (06:24→21:26)
[2017-11-12 06:51] LABS: Basophils # (auto) 0.1 uL; Basophils % (auto) 0.6 % (0.0-2.0); Eosinophils # (auto) 0.2 uL; Eosinophils % (auto) 1.7 % (0.0-7.0); Hematocrit 33.4 % (41.0-53.0); Hemoglobin 11.1 g/dL (13.5-17.5); Lymphocytes # (auto) 0.7 uL; Lymphocytes % (auto) 6.1 % (10.0-50.0); Mean Corpuscular Hemoglobin 30.2 pg (28.0-32.0); Mean Corpuscular Hgb Conc. 33.1 g/dL (32.0-36.0); Mean Corpuscular Volume 91.4 fL (80.0-100.0); Monocytes # (auto) 1.1 uL; Monocytes % (auto) 9.4 % (0.0-12.0); Neutrophils % (auto) 82.2 % (37.0-80.0); Platelet Count (auto) 296 10^3/uL (140-450); Red Blood Cells 3.66 10^6/uL (4.5-5.90); Red Cell Distribution Width 14.2 % (11.8-14.3); White Blood Cell 12.2 10^3/uL (4.4-10.8)
[2017-11-12 07:02] LABS: Albumin 2.3 g/dL (3.4-5.0); Calcium 8.1 mg/dL (8.5-10.1); Potassium 4.1 mmol/L (3.5-5.1)
[2017-11-12 07:06] LABS: BUN/Creatinine Ratio 10.4; Bilirubin, Total 0.3 mg/dL (0.2-1.0)
[2017-11-12] MEDS: VANCOMYCIN 1,250 MG in D5W 5% 250 ML IV SCH (08:13)
[2017-11-12] MEDS: LORazepam 2MG/ML-1ML VIAL IV PRN ×2 (08:59→22:45)
[2017-11-12 09:00] VITALS: BP 129/63
[2017-11-12] MEDS ORDERED: LEVOFLOXACIN 500MG 100 ML IV ONE (10:15)
[2017-11-12] MEDS: FLUoxetine HCL 20 MG CAP PO SCH ×2 (11:53→21:28)
[2017-11-12] MEDS: ENOXAPARIN SOD 40 MG/0.4 ML SYRINGE SC SCH (11:53)
[2017-11-12] MEDS: PANTOPRAZOLE 40 MG/10 ML VIAL IV SCH (11:53)
[2017-11-12] MEDS: SODIUM CHLOR 0.9% PF (SALINE LOCK) 10ML VIAL/SYR IV SCH ×2 (11:54→21:30)
[2017-11-12] MEDS: HYDROCORTONE 1% TOPICAL CREAM 30 GM TUBE TOP SCH ×2 (11:56→21:30)
[2017-11-12 12:57] VITALS: BP 116/66
[2017-11-12 16:37] VITALS: BP 118/61
[2017-11-12] MEDS: TOPIRAMATE 100 MG TAB PO SCH (21:27)
[2017-11-12] MEDS: LACOSAMIDE 50 MG TAB PO SCH (21:27)
[2017-11-12] MEDS: QUEtiapine FUMARATE 25 MG TAB PO SCH (21:29)
[2017-11-12] MEDS: HYDROmorphone HCL 2 MG/ML VL IV PRN (23:35)
[2017-11-13] MEDS: metroNIDAZOLE 500MG/100ML 100 ML IV SCH ×4 (01:29→20:39)
[2017-11-13] MEDS: IPRATROPIUM BROM 0.5 MG/2.5ML INH SOL NEB SCH ×6 (02:34→22:41)
[2017-11-13] MEDS: ALBUTEROL SULF 2.5 MG/0.5ML(0.5%) NEB SOLN NEB SCH ×6 (02:35→22:41)
[2017-11-13 05:02] VITALS: BP 116/59
[2017-11-13] MEDS: PRIMIDONE 50 MG TAB PO SCH ×2 (06:39→22:14)
[2017-11-13 07:48] LABS: Basophils # (auto) 0.1 uL; Basophils % (auto) 0.6 % (0.0-2.0); Eosinophils # (auto) 0.2 uL; Eosinophils % (auto) 1.9 % (0.0-7.0); Hematocrit 34.1 % (41.0-53.0); Hemoglobin 11.2 g/dL (13.5-17.5); Lymphocytes # (auto) 1.1 uL; Lymphocytes % (auto) 10.7 % (10.0-50.0); Mean Corpuscular Hemoglobin 30.2 pg (28.0-32.0); Mean Corpuscular Hgb Conc. 32.9 g/dL (32.0-36.0); Mean Corpuscular Volume 91.8 fL (80.0-100.0); Monocytes # (auto) 1.1 uL; Neutrophils # (auto) 7.7 uL; Neutrophils % (auto) 75.8 % (37.0-80.0); Platelet Count (auto) 307 10^3/uL (140-450); Red Blood Cells 3.72 10^6/uL (4.5-5.90); Red Cell Distribution Width 14.3 % (11.8-14.3); White Blood Cell 10.2 10^3/uL (4.4-10.8)
[2017-11-13 08:01] LABS: Albumin 2.3 g/dL (3.4-5.0); Calcium 8.4 mg/dL (8.5-10.1); Potassium 3.8 mmol/L (3.5-5.1)
[2017-11-13 08:03] LABS: BUN/Creatinine Ratio 12.3
[2017-11-13 08:05] LABS: Bilirubin, Total 0.3 mg/dL (0.2-1.0); Total Protein 7.2 g/dL (6.4-8.2)
[2017-11-13 09:00] VITALS: BP 114/69
[2017-11-13] MEDS: LEVOFLOXACIN 500MG 100 ML IV SCH (09:56)
[2017-11-13] MEDS: ENOXAPARIN SOD 40 MG/0.4 ML SYRINGE SC SCH (09:56)
[2017-11-13] MEDS: PANTOPRAZOLE 40 MG/10 ML VIAL IV SCH (09:56)
[2017-11-13] MEDS: LACOSAMIDE 50 MG TAB PO SCH ×2 (09:56→22:15)
[2017-11-13] MEDS: FLUoxetine HCL 20 MG CAP PO SCH ×2 (09:57→22:14)
[2017-11-13] MEDS: TOPIRAMATE 100 MG TAB PO SCH ×2 (09:57→22:14)
[2017-11-13] MEDS: HYDROCORTONE 1% TOPICAL CREAM 30 GM TUBE TOP SCH ×2 (10:00→22:15)
[2017-11-13] MEDS: SODIUM CHLOR 0.9% PF (SALINE LOCK) 10ML VIAL/SYR IV SCH ×2 (10:00→22:14)
[2017-11-13 11:20] VITALS: BP 114/69
[2017-11-13 13:00] VITALS: BP 121/63
[2017-11-13 16:53] VITALS: BP 119/60
[2017-11-13 21:30] VITALS: BP 129/64
[2017-11-13] MEDS: QUEtiapine FUMARATE 25 MG TAB PO SCH (22:14)
[2017-11-14] MEDS: ALBUTEROL SULF 2.5 MG/0.5ML(0.5%) NEB SOLN NEB SCH ×6 (02:00→22:34)
[2017-11-14] MEDS: IPRATROPIUM BROM 0.5 MG/2.5ML INH SOL NEB SCH ×6 (02:00→22:34)
[2017-11-14] MEDS: metroNIDAZOLE 500MG/100ML 100 ML IV SCH ×4 (02:00→19:53)
[2017-11-14] MEDS: LORazepam 2MG/ML-1ML VIAL IV PRN (02:15)
[2017-11-14 05:00] VITALS: BP 116/68
[2017-11-14] MEDS: PRIMIDONE 50 MG TAB PO SCH ×2 (07:04→21:33)
[2017-11-14 07:25] LABS: Basophils # (auto) 0.1 uL; Basophils % (auto) 0.9 % (0.0-2.0); Eosinophils # (auto) 0.3 uL; Eosinophils % (auto) 2.5 % (0.0-7.0); Hemoglobin 11.5 g/dL (13.5-17.5); Lymphocytes # (auto) 1.3 uL; Mean Corpuscular Hemoglobin 29.3 pg (28.0-32.0); Mean Corpuscular Volume 91.7 fL (80.0-100.0); Monocytes # (auto) 0.9 uL; Neutrophils # (auto) 7.7 uL; Neutrophils % (auto) 74.6 % (37.0-80.0); Platelet Count (auto) 360 10^3/uL (140-450); Red Blood Cells 3.93 10^6/uL (4.5-5.90); Red Cell Distribution Width 14.4 % (11.8-14.3); White Blood Cell 10.3 10^3/uL (4.4-10.8)
[2017-11-14 07:44] LABS: Albumin 2.6 g/dL (3.4-5.0); BUN/Creatinine Ratio 11.4; Bilirubin, Total 0.2 mg/dL (0.2-1.0); Calcium 8.7 mg/dL (8.5-10.1); Potassium 3.9 mmol/L (3.5-5.1); Total Protein 7.8 g/dL (6.4-8.2)
[2017-11-14 09:00] VITALS: BP 119/76
[2017-11-14] MEDS ORDERED: GASTROGRAFIN 30 ML SOL ONE (09:14)
[2017-11-14] MEDS: SODIUM CHLOR 0.9% PF (SALINE LOCK) 10ML VIAL/SYR IV SCH ×2 (10:00→21:32)
[2017-11-14] MEDS: HYDROCORTONE 1% TOPICAL CREAM 30 GM TUBE TOP SCH ×2 (10:00→21:33)
[2017-11-14] MEDS: LEVOFLOXACIN 500MG 100 ML IV SCH (11:50)
[2017-11-14] MEDS: ENOXAPARIN SOD 40 MG/0.4 ML SYRINGE SC SCH (11:50)
[2017-11-14 13:00] VITALS: BP 117/71
[2017-11-14] MEDS: LACOSAMIDE 50 MG TAB PO SCH ×2 (13:57→21:33)
[2017-11-14] MEDS: FLUoxetine HCL 20 MG CAP PO SCH ×2 (13:57→21:33)
[2017-11-14] MEDS: TOPIRAMATE 100 MG TAB PO SCH ×2 (13:57→21:33)
[2017-11-14] MEDS: PANTOPRAZOLE 40 MG/10 ML VIAL IV SCH (13:58)
[2017-11-14 17:00] VITALS: BP 113/65
[2017-11-14 19:08] VITALS: BP 117/71
[2017-11-14] MEDS: QUEtiapine FUMARATE 25 MG TAB PO SCH (21:33)
[2017-11-15] MEDS: IPRATROPIUM BROM 0.5 MG/2.5ML INH SOL NEB SCH ×4 (02:02→14:22)
[2017-11-15] MEDS: ALBUTEROL SULF 2.5 MG/0.5ML(0.5%) NEB SOLN NEB SCH ×4 (02:02→14:22)
[2017-11-15] MEDS: metroNIDAZOLE 500MG/100ML 100 ML IV SCH ×3 (02:10→14:00)
[2017-11-15 05:42] LABS: Basophils # (auto) 0.1 uL; Eosinophils # (auto) 0.3 uL; Eosinophils % (auto) 2.9 % (0.0-7.0); Hematocrit 35.8 % (41.0-53.0); Hemoglobin 11.8 g/dL (13.5-17.5); Lymphocytes # (auto) 1.2 uL; Lymphocytes % (auto) 12.9 % (10.0-50.0); Mean Corpuscular Hemoglobin 30.2 pg (28.0-32.0); Mean Corpuscular Hgb Conc. 32.9 g/dL (32.0-36.0); Mean Corpuscular Volume 91.9 fL (80.0-100.0); Monocytes # (auto) 0.9 uL; Monocytes % (auto) 9.3 % (0.0-12.0); Neutrophils # (auto) 6.8 uL; Neutrophils % (auto) 73.9 % (37.0-80.0); Platelet Count (auto) 344 10^3/uL (140-450); Red Cell Distribution Width 14.1 % (11.8-14.3); White Blood Cell 9.2 10^3/uL (4.4-10.8)
[2017-11-15 05:48] VITALS: BP 98/70
[2017-11-15 06:09] LABS: Potassium 3.9 mmol/L (3.5-5.1)
[2017-11-15 06:14] LABS: Albumin 2.6 g/dL (3.4-5.0); BUN/Creatinine Ratio 15.5; Calcium 8.8 mg/dL (8.5-10.1)
[2017-11-15 06:16] LABS: Bilirubin, Total 0.2 mg/dL (0.2-1.0); Total Protein 7.8 g/dL (6.4-8.2)
[2017-11-15] MEDS: PRIMIDONE 50 MG TAB PO SCH ×2 (07:00→11:11)
[2017-11-15 09:18] VITALS: BP 117/67
[2017-11-15] MEDS: FLUoxetine HCL 20 MG CAP PO SCH ×2 (10:00→10:22)
[2017-11-15] MEDS: SODIUM CHLOR 0.9% PF (SALINE LOCK) 10ML VIAL/SYR IV SCH (10:08)
[2017-11-15] MEDS: ENOXAPARIN SOD 40 MG/0.4 ML SYRINGE SC SCH (10:22)
[2017-11-15] MEDS: PANTOPRAZOLE 40 MG/10 ML VIAL IV SCH (10:22)
[2017-11-15] MEDS: TOPIRAMATE 100 MG TAB PO SCH (10:23)
[2017-11-15] MEDS: LACOSAMIDE 50 MG TAB PO SCH (10:24)
[2017-11-15] MEDS: HYDROCORTONE 1% TOPICAL CREAM 30 GM TUBE TOP SCH (10:24)
[2017-11-15] MEDS: LEVOFLOXACIN 500MG 100 ML IV SCH (10:24)
== END 2017-11-15 14:57 | disposition home health service (06) | DRG 853 ==
LOC: ER 08:21 → WEST WING 08:22 → ICU WEST 18:14 → TELE-WESTW 11-02 17:29 → DOU IN ICU 11-04 21:54 → WEST WING 11-05 23:56 → DOU IN ICU 11-06 00:13 → TELE-CENTR 11-07 14:30
PROVIDERS: ADMIT Internal Medicine; ATTEND Internal Medicine
PROC: 0DJD4ZZ Inspection of Lower Intestinal Tract, Percutaneous Endoscopic Approach (ICD-10-PCS; 2017-10-30)
PROC: 0DBC0ZZ Excision of Ileocecal Valve, Open Approach (ICD-10-PCS; 2017-10-30)
PROC: 5A1945Z Respiratory Ventilation, 24-96 Consecutive Hours (ICD-10-PCS; 2017-10-30)
PROC: 0BH17EZ Insertion of Endotracheal Airway into Trachea, Via Natural or Artificial Opening (ICD-10-PCS; 2017-10-30)
PROC: 0DNW0ZZ Release Peritoneum, Open Approach (ICD-10-PCS; 2017-10-30)
PROC: 0DTJ0ZZ Resection of Appendix, Open Approach (ICD-10-PCS; principal; 2017-10-30 16:07)
PROC: 02H633Z Insertion of Infusion Device into Right Atrium, Percutaneous Approach (ICD-10-PCS; 2017-11-01)
PROC: 5A09357 Assistance with Respiratory Ventilation, Less than 24 Consecutive Hours, Continuous Positive Airway Pressure (ICD-10-PCS; 2017-11-05)
PROC: 5A09357 Assistance with Respiratory Ventilation, Less than 24 Consecutive Hours, Continuous Positive Airway Pressure (ICD-10-PCS; 2017-11-07)
PROC: 5A09357 Assistance with Respiratory Ventilation, Less than 24 Consecutive Hours, Continuous Positive Airway Pressure (ICD-10-PCS; 2017-11-11)
DX: A41.9 Sepsis, unspecified organism (principal); K35.3 Acute appendicitis with localized peritonitis; R65.21 Severe sepsis with septic shock; J18.9 Pneumonia, unspecified organism; G93.41 Metabolic encephalopathy; J96.00 Acute respiratory failure, unspecified whether with hypoxia or hypercapnia; E87.1 Hypo-osmolality and hyponatremia; E44.1 Mild protein-calorie malnutrition; J90 Pleural effusion, not elsewhere classified; J98.11 Atelectasis; E87.2 Acidosis; F72 Severe intellectual disabilities; J91.8 Pleural effusion in other conditions classified elsewhere; E87.6 Hypokalemia; N18.3 Chronic kidney disease, stage 3 (moderate); I12.9 Hypertensive chronic kidney disease with stage 1 through stage 4 chronic kidney disease, or unspecified chronic kidney disease; F03.90 Unspecified dementia, unspecified severity, without behavioral disturbance, psychotic disturbance, mood disturbance, and anxiety; E11.21 Type 2 diabetes mellitus with diabetic nephropathy; E11.22 Type 2 diabetes mellitus with diabetic chronic kidney disease; E66.01 Morbid (severe) obesity due to excess calories; F32.9 Major depressive disorder, single episode, unspecified; Z82.49 Family history of ischemic heart disease and other diseases of the circulatory system; J38.4 Edema of larynx; K52.9 Noninfective gastroenteritis and colitis, unspecified; Q43.0 Meckel's diverticulum (displaced) (hypertrophic); R32 Unspecified urinary incontinence; Z79.899 Other long term (current) drug therapy; Z82.5 Family history of asthma and other chronic lower respiratory diseases; Z83.3 Family history of diabetes mellitus; Z86.61 Personal history of infections of the central nervous system; G40.409 Other generalized epilepsy and epileptic syndromes, not intractable, without status epilepticus; Z68.38 Body mass index [BMI] 38.0-38.9, adult
CPT/HCPCS: 36415; 36569; 36600; 51702; 71045; 71260; 74176; 76604; 80053; 80202; 81001; 82040; 82805; 82962; 83036; 83605; 83690; 83735; 83880; 84100; 84132; 84443; 84478; 85007; 85025; 85027; 85610; 87040; 87070; 87077; 87081; 87086; 87186; 87205; 92610; 93005; 94002; 94003; 94640; 94660; 94761; 96361; 96365; 96367; 96375; 97110; 97116; 97530; A4565; A6257; C9113; C9254; J0690; J0696; J1100; J1815; J1956; J2250; J2405; J2543; J2704; J3480; J3490; J7060; J7131

== ENCOUNTER 2017-11-16 10:40 | Inpatient (IN) | payer MEDICARE, MEDICAID ==
[~2017-11-16] VITALS: Ht 170.2 cm; Wt 111.3 kg
[~2017-11-16 10:40] MED LIST changes: -CITA-77; -DIVA500T59; +FLUO40CA PO; -LAMICTAL; -LORA-205; -MELO1TAB56; -OXCA300T26; +QUET100T46 PO; -TOPAMAX; -[UNRECOGNIZED DRUG - CODE]; -[UNRECOGNIZED DRUG - CODE]
[2017-11-16] MEDS ORDERED: SODIUM CHLORIDE 0.9% 1,000 ML IV ONE (12:27)
[2017-11-16 13:16] LABS: Basophils # (auto) 0.1 uL; Basophils % (auto) 1.1 % (0.0-2.0); Eosinophils # (auto) 0.3 uL; Eosinophils % (auto) 3.3 % (0.0-7.0); Hematocrit 36.2 % (41.0-53.0); Hemoglobin 11.7 g/dL (13.5-17.5); Lymphocytes # (auto) 0.6 uL; Lymphocytes % (auto) 8.3 % (10.0-50.0); Mean Corpuscular Hemoglobin 29.5 pg (28.0-32.0); Mean Corpuscular Hgb Conc. 32.4 g/dL (32.0-36.0); Mean Corpuscular Volume 91.1 fL (80.0-100.0); Monocytes # (auto) 0.6 uL; Monocytes % (auto) 7.5 % (0.0-12.0); Neutrophils # (auto) 6.1 uL; Neutrophils % (auto) 79.8 % (37.0-80.0); Platelet Count (auto) 338 10^3/uL (140-450); Red Blood Cells 3.98 10^6/uL (4.5-5.90); Red Cell Distribution Width 14.3 % (11.8-14.3); White Blood Cell 7.7 10^3/uL (4.4-10.8)
[2017-11-16 13:31] LABS: Albumin 2.8 g/dL (3.4-5.0); BUN/Creatinine Ratio 19.3; Calcium 9.2 mg/dL (8.5-10.1); Potassium 3.6 mmol/L (3.5-5.1)
[2017-11-16 13:33] LABS: Bilirubin, Total 0.2 mg/dL (0.2-1.0); Total Protein 8.1 g/dL (6.4-8.2)
[2017-11-16] MEDS ORDERED: LORazepam 2MG/ML-1ML VIAL IV PRN (15:15)
[2017-11-16] MEDS ORDERED: HYDROcodone-ACET 5/325MG TAB PO PRN (15:15)
[2017-11-16] MEDS ORDERED: ONDANSETRON HCL 4 MG/2 ML VIAL IV PRN (15:15)
[2017-11-16] MEDS ORDERED: LACOSAMIDE 50 MG TAB PO ONE (16:00)
[2017-11-16] MEDS ORDERED: FLUoxetine HCL 20 MG CAP PO ONE (16:00)
[2017-11-16] MEDS: LACOSAMIDE 50 MG TAB PO SCH ×2 (16:00→22:39)
[2017-11-16 17:14] VITALS: BP 146/71
[2017-11-16] MEDS: CEPHALEXIN 250 MG CAP PO SCH (17:43)
[2017-11-16] MEDS ORDERED: TOPIRAMATE 25 MG TAB PO SCH (18:00)
[2017-11-16] MEDS ORDERED: TOPIRAMATE 100 MG TAB PO SCH ×2 (18:00→18:33)
[2017-11-16] MEDS ORDERED: PRIMIDONE 50 MG TAB PO SCH (18:00)
[2017-11-16 21:41] VITALS: BP 126/66
[2017-11-17] MEDS: CEPHALEXIN 250 MG CAP PO SCH ×2 (00:42→06:01)
[2017-11-17 04:37] VITALS: BP 124/70
[2017-11-17] MEDS ORDERED: PRIMIDONE 50 MG TAB PO SCH (07:00)
[2017-11-17] MEDS ORDERED: TOPIRAMATE 100 MG TAB PO SCH ×2 (07:00)
[2017-11-17] MEDS ORDERED: FLUoxetine HCL 20 MG CAP PO SCH (10:00)
[2017-11-17] MEDS: LACOSAMIDE 50 MG TAB PO SCH (10:23)
[2017-11-17 12:46] VITALS: BP 113/61
== END 2017-11-17 13:21 | disposition home or self-care (01) | DRG 920 ==
LOC: ER 10:40 → OVERFLOW 10:41 → WEST WING 16:34 → CENTRAL 18:18
PROVIDERS: ADMIT Internal Medicine; ATTEND Internal Medicine
DX: T81.31XA Disruption of external operation (surgical) wound, not elsewhere classified, initial encounter (principal); E44.0 Moderate protein-calorie malnutrition; G40.409 Other generalized epilepsy and epileptic syndromes, not intractable, without status epilepticus; F03.90 Unspecified dementia, unspecified severity, without behavioral disturbance, psychotic disturbance, mood disturbance, and anxiety; F79 Unspecified intellectual disabilities; E11.9 Type 2 diabetes mellitus without complications; E66.9 Obesity, unspecified; Z82.49 Family history of ischemic heart disease and other diseases of the circulatory system; Z83.3 Family history of diabetes mellitus; Z90.49 Acquired absence of other specified parts of digestive tract; Y83.8 Other surgical procedures as the cause of abnormal reaction of the patient, or of later complication, without mention of misadventure at the time of the procedure; Y92.89 Other specified places as the place of occurrence of the external cause; Z68.38 Body mass index [BMI] 38.0-38.9, adult
CPT/HCPCS: 36415; 80053; 83735; 85025; 87081; 94761; 96360

== ENCOUNTER 2017-11-20 09:39 | Emergency (ER) | payer MEDICARE, MEDICAID ==
[~2017-11-20] VITALS: Ht 170.2 cm; Wt 108.9 kg
[2017-11-20 09:45] VITALS: BP 116/69
== END 2017-11-20 10:23 | disposition home or self-care (01) ==
LOC: ER 09:39
DX: Z48.01 Encounter for change or removal of surgical wound dressing (principal); Z90.49 Acquired absence of other specified parts of digestive tract; Z79.899 Other long term (current) drug therapy

== ENCOUNTER → 2018-11-14 | Outpatient (CLI) | payer MEDICARE, MEDICAID ==
[~2018-11-14] MED LIST changes: +KEP500T PO
[2018-11-14 10:29] LABS: Urine Bacteria NONE SEEN /hpf (None Seen); Urine Blood Negative /uL (Negative); Urine Mucus FEW (None Seen); Urine Specific Gravity 1.015 (1.001-1.035); Urine WBC <1 /hpf (0 - 3)
[2018-11-14 10:30] LABS: Basophils # (auto) 0.1 uL; Basophils % (auto) 0.7 % (0.0-2.0); Eosinophils # (auto) 0.3 uL; Eosinophils % (auto) 3.7 % (0.0-7.0); Hematocrit 45.4 % (41.0-53.0); Hemoglobin 14.6 g/dL (13.5-17.5); Lymphocytes # (auto) 1.7 uL; Lymphocytes % (auto) 19.8 % (10.0-50.0); Mean Corpuscular Hemoglobin 28.7 pg (28.0-32.0); Mean Corpuscular Hgb Conc. 32.1 g/dL (32.0-36.0); Mean Corpuscular Volume 89.5 fL (80.0-100.0); Monocytes # (auto) 0.6 uL; Monocytes % (auto) 7.3 % (0.0-12.0); Neutrophils # (auto) 5.8 uL; Neutrophils % (auto) 68.5 % (37.0-80.0); Platelet Count (auto) 295 10^3/uL (140-450); Red Blood Cells 5.08 10^6/uL (4.5-5.90); Red Cell Distribution Width 14.6 % (11.8-14.3); White Blood Cell 8.4 10^3/uL (4.4-10.8)
[2018-11-14 15:48] LABS: Albumin 3.5 g/dL (3.4-5.0); BUN/Creatinine Ratio 13.6; Bilirubin, Total 0.2 mg/dL (0.2-1.0); Potassium 3.9 mmol/L (3.5-5.1); Total Protein 8.3 g/dL (6.4-8.2)
== END | disposition home or self-care (01) ==
LOC: LAB 09:46
PROVIDERS: ATTEND Nurse Practitioner
DX: E78.5 Hyperlipidemia, unspecified (principal)
CPT/HCPCS: 36415; 80053; 80061; 81001; 84443; 85025